=== PATIENT | male | born 1990 | race Caucasian/White ===

== ENCOUNTER 2016-06-19 18:18 | Emergency (ER) | payer BC ==
[~2016-06-19] VITALS: Ht 182.9 cm; Wt 81.6 kg
[2016-06-19 21:01] VITALS: BP 120/76
== END 2016-06-19 23:20 | disposition home or self-care (01) ==
LOC: EDBD 18:18 → ER 18:24
DX: R10.9 Unspecified abdominal pain (principal); V49.60XA Unspecified car occupant injured in collision with unspecified motor vehicles in traffic accident, initial encounter; Y93.89 Activity, other specified; Y92.410 Unspecified street and highway as the place of occurrence of the external cause; Y99.8 Other external cause status
CPT/HCPCS: 71020